=== PATIENT | female | born 1955 | race Caucasian/White ===

== ENCOUNTER 2021-10-15 10:47 | Emergency (ER) | payer MEDICARE, OTHER ==
[~2021-10-15] VITALS: Ht 172.7 cm; Wt 88.6 kg
[2021-10-15 11:12] LABS: BASOPHILS # (AUTO) 0.1 X10'3 (0-0.2); EOSINOPHILS # (AUTO) 0.2 X10'3 (0-0.9); EOSINOPHILS % (AUTO) 4.1 % (0-6); HEMOGLOBIN 13.1 g/dl (12.0-16.0); LYMPHOCYTES # (AUTO) 1.6 X10'3 (1.1-4.8); LYMPHOCYTES % (AUTO) 31.7 % (21-51); MEAN CORPUSCULAR HEMOGLOBIN 29.3 PG (27.0-31.0); MEAN CORPUSCULAR HGB CONC 32.8 g/dL (33.0-36.5); MEAN CORPUSCULAR VOLUME 89.4 FL (78-98); MEAN PLATELET VOLUME 7.6 FL (7.4-10.4); MONOCYTES # (AUTO) 0.4 X10'3 (0-0.9); MONOCYTES % (AUTO) 6.8 % (2-12); NEUTROPHILS # (AUTO) 2.9 X10'3 (1.8-7.7); NEUTROPHILS % (AUTO) 56.4 % (42-75); PLATELET COUNT 405 X10'3 (140-440); RED BLOOD COUNT 4.48 X10'6 (4.20-5.60); WHITE BLOOD COUNT 5.2 X10'3 (4.5-11.0)
[2021-10-15 11:27] LABS: ALANINE AMINOTRANSFERASE 17 U/L (12-78); ALBUMIN/GLOBULIN RATIO 0.9 (1.1-1.5); ALKALINE PHOSPHATASE 69 IU/L (46-116); ANION GAP 10 (8-16); ASPARTATE AMINO TRANSFERASE 10 U/L (10-37); BILIRUBIN,TOTAL 0.3 MG/DL (0.1-1.0); BLOOD UREA NITROGEN 9 MG/DL (7-18); BUN/CREATININE RATIO 11.8 (6.6-38.0); CALCIUM 8.6 MG/DL (8.5-10.1); CHLORIDE 109 MMOL/L (99-107); CREATININE 0.76 MG/DL (0.40-0.90); GLUCOSE 135 MG/DL (70-104); POTASSIUM 3.7 MMOL/L (3.5-5.1); SODIUM 142 MMOL/L (135-145); TOTAL CARBON DIOXIDE 23.2 MMOL/L (24-32); TOTAL PROTEIN 6.3 G/DL (6.4-8.2); eGFR 76 ML/MIN
[2021-10-15 11:36] LABS: ETHANOL < 0.010 GM/DL (0.0-0.010)
--- NOTE | 2021-10-15 12:00 | NUR ---
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 when she is ready to go home. Marta - [phone]
[2021-10-15 12:03] LABS: CLARITY,URINE CLOUDY (Clear); COLOR,URINE YELLOW (Yellow); GLUCOSE, URINE NEGATIVE (Neg); KETONES,URINE NEGATIVE (Neg); LEUKOCYTE ESTERASE ,URINE NEGATIVE (Neg); NITRITES, URINE NEGATIVE (Neg); OCCULT BLOOD,URINE NEGATIVE (Neg); PROTEIN,URINE NEGATIVE (Neg); UROBILINOGEN,URINE 0.2 E.U/dL (0.2-1.0)
[2021-10-15 12:06] LABS: UA COLLECTION TYPE CLN CATCH MIDSTREAM
--- NOTE | 2021-10-15 12:09 | NUR ---
report made to [facility].
[2021-10-15 12:10] LABS: BACTERIA,URINE 4+ /HPF (Neg); CAL OXALATE CRYSTALS FEW /HPF (NEGATIVE); MUCUS STRANDS MANY /LPF (Neg); RBC,URINE 0-2 /HPF (0-2); SQUAMOUS EPITHELIAL CELL,UR MANY /LPF (FEW); WBC,URINE 0-4 /HPF (0-4)
[2021-10-15 12:15] LABS: URINE AMPHETAMINE SCREEN NEGATIVE (Neg); URINE BARBITUATE SCREEN NEGATIVE (Neg); URINE BENZODIAZEPINES SCREEN NEGATIVE (Neg); URINE CANNABINOID SCREEN NEGATIVE (Neg); URINE COCAINE SCREEN NEGATIVE (Neg); URINE METHADONE SCREEN NEGATIVE (Neg); URINE OPIATE SCREEN NEGATIVE (Neg); URINE PHENCYCLIDINE SCREEN NEGATIVE (Neg)
--- NOTE | 2021-10-15 12:46 | NUR ---
wants to be notified for changes Natasha Dawson- [phone]. Permission given from pt. to give information over the phone to .
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
[2021-10-15] MEDS ORDERED: ibuprofen tablet 400 MG TABLET PO PRN (17:05)
[2021-10-15] MEDS: clonazePAM 1mg tablet PO PRN (17:11)
[2021-10-15] MEDS ORDERED: CLON-571 (20:16)
[2021-10-15] MEDS ORDERED: QUET300T5 PO (20:18)
--- NOTE | 2021-10-15 22:22 | NUR ---
Tayo keene in [facility] - 10/15/21 at 2225 by NANY Patient's was sent to [facility].
--- NOTE | 2021-10-15 22:25 | NUR ---
Patient's packet was sent to [facility].
[2021-10-15] MEDS ORDERED: TRAZ300T2 PO (22:59)
[2021-10-15] MEDS ORDERED: ROPI1TAB6 PO (22:59)
[2021-10-15] MEDS ORDERED: POTA-82 PO (23:12)
[2021-10-15] MEDS ORDERED: OMEP20TA43 PO (23:12)
[2021-10-15] MEDS ORDERED: IBUP-1986 PO (23:12)
[2021-10-15] MEDS ORDERED: ELDE1CAP (23:12)
[2021-10-15] MEDS ORDERED: NALT50TA PO (23:12)
[2021-10-15] MEDS ORDERED: ESTR2TAB50 PO (23:12)
[2021-10-15] MEDS ORDERED: HYDR-4070 PO (23:12)
[2021-10-16] MEDS ORDERED: traZODone 150mg tablet PO ONE (03:15)
[2021-10-16] MEDS ORDERED: ROPINIRole 1mg tablet PO ONE (03:20)
[2021-10-16] MEDS ORDERED: QUETIAPINE 150 MG TAB.SR.24H PO ONE (03:20)
--- NOTE | 2021-10-16 03:51 | NUR ---
Patient woke up from sleep and demanded her regular nighttime medications. Late adminstration approved by ER MD. Pt became increasingly upset about medications, leaving room and going to nursing station to express her concerns. Patient threw tray table and and contents across the room 3 seperate times. MD discussed medications with patient. Pt insisted on taking requip first and would only take remaining medications 30 min later. Pt also requested PRN clonazepam.
--- NOTE | 2021-10-16 04:30 | NUR ---
pt. requested services to come discuss patient rights with her due to being unable to have a cell phone and "not seeing a doctor". Gave rest of medications and pt. is now resting peacefully.
--- NOTE | 2021-10-16 05:49 | NUR ---
PT. WOKE UP AND REQUESTED TO USE BATHROOM. AMBULATED ON THEIR OWN W/O ASSISTANCE. SEEMS TO HAVE CALMED DOWN FROM PREVIOUSLY. BACK TO BED AND RESTING.
--- NOTE | 2021-10-16 06:51 | NUR ---
patient asleep,respirations regular.
[2021-10-16] MEDS ORDERED: pantoprazole 40mg Tablet.DR PO SCH (07:30)
[2021-10-16] MEDS ORDERED: non-formulary drug (Ibuprofen 1 TAB) PO SCH (08:00)
[2021-10-16] MEDS ORDERED: potassium Cl 20 mEq SR tablet PO SCH (08:00)
[2021-10-16] MEDS ORDERED: estradiol 1mg tablet PO SCH (08:00)
--- NOTE | 2021-10-16 08:09 | NUR ---
[facility] DIDN'T GET [facility] PACKET... REFAXED
[2021-10-16] MEDS: clonazePAM 1mg tablet PO PRN ×2 (08:58→17:33)
[2021-10-16 09:06] VITALS: BP 134/61
--- NOTE | 2021-10-16 09:06 | NUR ---
due medications given, denies si/hi/ hallucintion at this time,consumed 30% of meal.Patient cooperative,calm and conversant.Vital signs checked.
--- NOTE | 2021-10-16 11:26 | NUR ---
patient asleep at this time.
--- NOTE | 2021-10-16 12:30 | NUR ---
Sw at bedside.
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
--- NOTE | 2021-10-16 14:45 | NUR ---
PATIENT UP TO THE BATHROOM.
--- NOTE | 2021-10-16 16:18 | NUR ---
Patient tearful and frustrated, " i want to be transferred to [facility] because nothing is happening here", explained that she's on a hold and that she will also wait and will have to go through the same process at [facility].Patient redirectable.Remained calm and cooperative.
--- NOTE | 2021-10-16 16:39 | NUR ---
SPOKE TO PTS TO GIVE UPDATE AND PT OKAYED NURSE TO TALK TO .
--- NOTE | 2021-10-16 16:50 | NUR ---
[facility]/ Cyndie called and is reviewing patient's packet.
--- NOTE | 2021-10-16 17:44 | NUR ---
patient was accepted at [facility] ,spoke with [facility] office Irina [phone], RN attempted to call report but Cyndie/sociology faculty member said she will contact Irina/NIURKA to see if patient can be transported tomorrow.
--- NOTE | 2021-10-16 18:00 | NUR ---
Irina spoke to RN and said to call her at [phone] so she can send transportation.
--- NOTE | 2021-10-16 18:06 | NUR ---
called report to [facility], spoke to Onofre CARLIN. [phone].
--- NOTE | 2021-10-16 18:09 | NUR ---
patient's transportation between [phone].
--- NOTE | 2021-10-16 18:17 | NUR ---
UPDATED PTS WHERE PT GOT ACCEPTED AND LET HIM KNOW THEY WERE ON THE WAY PT HAD CALLED SAYING SHE WAS GOING TO [place].
--- NOTE | 2021-10-16 18:24 | NUR ---
patient eating dinner.
[2021-10-16] MEDS ORDERED: quetiapine fumarate ER 300mg tablet PO SCH (21:00)
[2021-10-16] MEDS ORDERED: naltrexone 50mg tablet PO SCH (21:00)
[2021-10-16] MEDS ORDERED: ROPINIRole 1mg tablet PO SCH (21:00)
[2021-10-16] MEDS ORDERED: hydrALAZINE 25 MG tablet PO SCH (21:00)
[2021-10-16] MEDS ORDERED: traZODone 150mg tablet PO SCH (21:00)
== END 2021-10-16 20:15 ==
LOC: ER 10:49
DX: R45.851 Suicidal ideations (principal); Z20.822 Contact with and (suspected) exposure to COVID-19; R45.6 Violent behavior; Z88.8 Allergy status to other drugs, medicaments and biological substances
CPT/HCPCS: 36415; 80053; 80305; 80320; 81001; 82948; 84443; 85025; 87635; 99285; C9803